=== PATIENT | male | born 1935 | race Caucasian/White ===

== ENCOUNTER → 2019-07-13 | Outpatient (CLI) | payer MEDICARE ==
[~2019-07-13] VITALS: Ht 165.1 cm; Wt 67.0 kg
[~2019-07-13] MED LIST: AMLO5TAB9 PO; BISO5TAB19 PO; INDA1.255 PO; LISI-661 PO; RIVA15T PO
[2019-07-13 11:16] VITALS: BP 97/56
== END | disposition home or self-care (01) ==
LOC: SRCNTR 10:57
PROVIDERS: ATTEND Internal Medicine Clinical Cardiac Electrophysiology
DX: Z45.018 Encounter for adjustment and management of other part of cardiac pacemaker (principal); I48.91 Unspecified atrial fibrillation; I10 Essential (primary) hypertension; I49.9 Cardiac arrhythmia, unspecified; Z95.810 Presence of automatic (implantable) cardiac defibrillator; Z79.899 Other long term (current) drug therapy; Z88.0 Allergy status to penicillin
CPT/HCPCS: G0463

== ENCOUNTER → 2020-04-04 | Outpatient (CLI) | payer OTHER ==
[~2020-04-04] VITALS: Ht 165.1 cm; Wt 68.8 kg
[~2020-04-04] MED LIST changes: +AMLO-257 PO; -AMLO5TAB9 PO; +FURO20TA4 PO; +OMEP20CA12 PO
[2020-04-04 12:21] VITALS: BP 134/96
== END | disposition home or self-care (01) ==
LOC: SRCNTR 12:14
PROVIDERS: ATTEND Internal Medicine Clinical Cardiac Electrophysiology
DX: Z45.010 Encounter for checking and testing of cardiac pacemaker pulse generator [battery] (principal)
CPT/HCPCS: G0463; Z7500